=== PATIENT | male | born 1945 | race Caucasian/White ===

== ENCOUNTER → 2020-09-22 | Outpatient (CLI) | payer OTHER | LOC: CAT 09:19 | PROVIDERS: ATTEND Internal Medicine | DX: R91.8 Other nonspecific abnormal finding of lung field (principal); I25.10 Atherosclerotic heart disease of native coronary artery without angina pectoris; I51.7 Cardiomegaly; R16.1 Splenomegaly, not elsewhere classified; M25.78 Osteophyte, vertebrae ==